=== PATIENT | female | born 1930 | race Caucasian/White ===

== ENCOUNTER → 2016-09-20 | Outpatient (CLI) | payer MEDICARE, BC ==
--- NOTE | 2016-09-20 12:05 | HKNOTE ---
DATE OF SERVICE: 09/20/2016 INTERVAL HISTORY: The patient presents today for a followup evaluation on her bilateral knees. She has known advanced osteoarthritis of bilateral knees and is not an appropriate surgical candidate a t this time. She has been undergoing Monovisc injection to her bilateral knees with some success. We last saw her about a year and a half ago, at which time she had bilateral Monovisc injections. S he describes having worsening knee pain, especially with ambulation and ambulating up and down the s tairs. She does use a front-wheel walker precautionary most of the time, but can ambulate without a ny assistive device. She is here today for a repeat Monovisc injection to bilateral knees. PHYSICAL EXAMINATION: Today, she is alert and oriented x4 and in no acute distress. She is ambulat ing with a front-wheel walker. Exam of bilateral knees demonstrates varus deformity. She has 3+ pa tellofemoral crepitus bilaterally. There are no effusions noted. There is no erythema or warmth. Varus and valgus forces are stable. Compartments are otherwise soft. She is neurovascularly intact distally. IMAGING: X-rays of bilateral knees were obtained today and reviewed by me. They reveal severe tric ompartmental osteoarthritis with osteophyte formation, subchondral sclerosis as well as subchondral cysts. There is no acute fractures or dislocations identified. ASSESSMENT: Bilateral knee osteoarthritis. PLAN: The patient underwent bilateral Monovisc injections to her knees today successfully. She is to modify her activity, take Tylenol for pain if needed. In addition, she should apply ice to both of her knees. Information on the injections as well as postinjection instructions were provided tojt ferguson. I advised the patient we can repeat her injections at 6 months. She will follow up on an as ne eded basis and call if she would like repeat injections at that time. Dictated By: NIKHIL KAMINSKI for GOLD MCCOY/ANTHONY Conf#: [id number] DID#: [id number]
--- NOTE | 2016-09-20 12:56 | RADRPT ---
PROCEDURE: XR bilateral knees. CLINICAL INDICATION: Knee pain TECHNIQUE: AP weightbearing, PA weightbearing, lateral weightbearing and sunrise views are availab le for review. COMPARISON: 05/10/2015 FINDINGS: Right knee: There is severe osteoarthrosis involving the right medial tibial femoral compartment and moderate os teoarthrosis involving the patellofemoral compartment. This is associated with joint space narrowing , subchondral sclerosis and osteophytosis. There is synovial osteochondromatosis with a calcified lo ose body in the posterior knee joint Left knee: There is severe osteoarthrosis involving the left medial tibial femoral compartment and moderate ost eoarthrosis involving the patellofemoral compartment. This is associated with joint space narrowing, subchondral sclerosis and osteophytosis. There is synovial osteochondromatosis with a calcified loo se body in the posterior knee joint There is diffuse osteopenia. No fractures are identified. No osseous lesions are identified. The sof t tissues are unremarkable. IMPRESSION: Diffuse osteopenia. Severe osteoarthrosis involving the right medial tibial femoral compartment and moderate osteoarthro sis involving the patellofemoral compartment. Severe osteoarthrosis involving the left medial tibial femoral compartment and moderate osteoarthros is involving the patellofemoral compartment. Bilateral knee synovial osteochondromatosis .Richie Le MD, MD Date Time Electronically viewed and signed by .Richie Le MD, on 09/20/2016 12:56 .B/
== END | disposition home or self-care (01) ==
LOC: HKI 10:15
PROVIDERS: ATTEND Orthopaedic Surgery
DX: M25.561 Pain in right knee (principal); M25.562 Pain in left knee; M17.0 Bilateral primary osteoarthritis of knee
CPT/HCPCS: J7327